=== PATIENT | female | born 1975 | race Caucasian/White ===

== ENCOUNTER 2020-04-07 16:18 | Emergency (ER) | payer OTHER, SELFPAY ==
--- NOTE | 2020-04-07 16:24 | ED.GENADULT ---
HPI - General Adult General Chief complaint: Urogenital-Female Stated complaint: Kidney/Urogenital-female Time Seen by Provider: 04/07/20 16:24 Source: patient Mode of arrival: ambulatory Limitations: no limitations History of Present Illness HPI narrative: 44-year-old female patient presents to the [facility] with complaints of right flank pain. Patient states that the flank pain started about a week ago. Patient states she thought she might have kidney stones because when she peed this morning she thought she felt a stone when she wiped. Patient denies any pain with urination or any blood to the urine. Patient states that she did fall in the [employer] about 7 months ago and is been having issues with her back. Patient states she is currently on muscle relaxants. Patient states she has been taking ibuprofen recently for the new right-sided flank pain. Patient denies it radiating to the stomach or the abdomen. Related Data Home Medications Medication Instructions Recorded Confirmed cyclobenzaprine See Rx Instructions .ROUTE 04/07/20 04/07/20 .COMPLEX PRN hydrochlorothiazide 12.5 mg PO DAILY 04/07/20 04/07/20 meloxicam 15 mg PO DAILY 04/07/20 04/07/20 exwcrxud-dwl-SF-lycopen-lutein 1 tablet PO DAILY 04/07/20 04/07/20 [Centrum Silver] potassium chloride 10 meq PO DAILY 04/07/20 04/07/20 Allergies Allergy/AdvReac Type Severity Reaction Status Date / Time No Known Allergies Allergy Verified 04/07/20 16:36 Review of Systems Review of Systems: Narrative: CONSTITUTIONAL: Denies fever, chills, or sweats. EYES: Denies visual changes, redness, or discharge. ENT: Denies rhinorrhea, congestion, sore throat, or otalgia. CARDIOVASCULAR: Denies chest pain, palpitations, or edema. RESPIRATORY: Denies cough or dyspnea. GASTROINTESTINAL: Denies abdominal pain, nausea, vomiting, or diarrhea. GENITOURINARY: Denies dysuria or hematuria. Positive right-sided flank pain SKIN: Denies rash or itching. MUSCULOSKELETAL: Denies back pain, joint pain, or myalgia. NEUROLOGIC: Denies headache, numbness, or weakness. PSYCHIATRIC: Denies anxiety or depression. 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 There is no relevant family history pertinent to the presenting complaint. Exam Narrative: Exam Narrative: GENERAL: Well-appearing, well-nourished, and in no acute distress. HEAD: Normocephalic, atraumatic. EYES: PERRLA and EOMI. ENT: Nares clear, no rhinorrhea or epistaxis. Mucous membranes moist. NECK: Supple. No lymphadenopathy CHEST: Clear to auscultation. No respiratory distress. HEART: Regular rate and rhythm. No murmur heard. Normal peripheral pulses. ABDOMEN: Soft, nontender, nondistended, normal active bowel sounds. No CVA tenderness on percussion BACK: Patient is able to ambulated without assistance. Pt is seated on the stretcher in no obvouis distress. No surface trauma noted. muscle tenderness to Palpation of the right lower lumbar with spasm noted. No step-offs or deformity noted to the cervical, thoracic or lumbar spine to firm Palpation at the midline. No CVA tenderness to percussion. No saddle anesthesia. ROM: able to stand erect. Normal flexion, extension, Lateral bending and rotation without limitation or complaint of pain. EXTREMITIES: Normal range of motion. No edema. SKIN: Warm, dry, no rash. NEURO: No focal deficits. A
[2020-04-07 16:41] VITALS: BP 130/70; PULSE 71; RESP 20; TEMP 36.6; O2SAT 97
== END 2020-04-07 17:08 | disposition home or self-care (01) ==
PROVIDERS: Emergency Provider Nurse Practitioner Family; PCP Family Medicine
DX: R10.9 Unspecified abdominal pain (principal); M62.830 Muscle spasm of back; M19.90 Unspecified osteoarthritis, unspecified site; J45.909 Unspecified asthma, uncomplicated; R01.1 Cardiac murmur, unspecified; N80.9 Endometriosis, unspecified
CPT/HCPCS: 81003; 87077; 87086; 87088; 99213; G0463

== ENCOUNTER 2022-02-26 19:09 | Emergency (ER) | payer OTHER, SELFPAY ==
--- NOTE | 2022-02-26 19:10 | ED.ABDPAIN ---
HPI - Abdominal Pain General Chief Complaint: Abdominal Pain Stated Complaint: R SIDE PAIN Time Seen by Provider: 02/26/22 19:10 Source: patient Mode of arrival: ambulatory Limitations: no limitations History of Present Illness HPI narrative: Ms. Lopez is a 46-year-old female patient presenting to the clinic today with complaints of right pain radiating to the right upper and lower abdomen since Thursday. She reports no fever, chills, or urinary symptoms. History of gallbladder removal, hysterectomy, and tubal ligation. She reports that the pain is constant in her back rating it about a 4 out of 10 currently stating the pain is sharp and radiates into the right upper and lower abdomen. She is concerned that she may have pancreatitis. Also reports nausea. Related Data Home Medications Medication Instructions Recorded Confirmed hydrochlorothiazide 12.5 mg capsule 12.5 mg PO DAILY 04/07/20 04/07/20 meloxicam 15 mg tablet 15 mg PO DAILY 04/07/20 04/07/20 cccvwmyq-qlh-pmicg acid 0.4 1 tablet PO DAILY 04/07/20 04/07/20 mg-lycopene 300 mcg-lutein 250 mcg tablet (Centrum Silver) potassium chloride 10 mEq 10 meq PO DAILY 04/07/20 04/07/20 tablet,extended release(part/cryst) gabapentin 02/26/22 oxycodone 02/26/22 Allergies Allergy/AdvReac Type Severity Reaction Status Date / Time No Known Allergies Allergy Verified 04/07/20 16:36 Review of Systems Review of Systems: Pertinent positives per HPI. Patient denies any fever, chills, rash, headache, visual changes, dizziness, cough, runny nose, sore throat, shortness of breath, chest pain, palpitations, nausea, vomiting, diarrhea, constipation, or any urinary issues. 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 There is no relevant family history pertinent to the patient complaint. Exam Narrative: General: Well-developed, morbidly obese, in no apparent distress. Head: Normocephalic, atraumatic. Cardio: Regular rate and rhythm, s1 and s2 normal, no murmur appreciated. Resp: Clear to auscultation bilaterally, no rhonchi, rales, wheezing or rubs. Abdomen: Soft, pliable, bowel sounds present in all quadrants,tender to palpation over the right lower and right upper quadrant, no organomegly, positive right-sided CVAT tenderness. Course Course Emergency Course: Portions of this record may have been created with voice recognition software. Level of Care: Express Care Visit Vital Signs Vital signs: Vital Signs Temperature 37.2 C 02/26/22 19:21 Pulse Rate 86 02/26/22 19:21 Respiratory Rate 16 02/26/22 19:21 Blood Pressure 137/102 H 02/26/22 19:21 Pulse Oximetry 98 02/26/22 19:21 Temperature 37.2 C 02/26/22 19:21 Pulse Rate 86 02/26/22 19:21 Respiratory Rate 16 02/26/22 19:21 Blood Pressure 137/102 H 02/26/22 19:21 Pulse Oximetry 98 02/26/22 19:21 Vital signs reviewed Transfer Transfered to: [facility] Transportation: Other (private car) Transfer rationale: Right flank pain radiating into right upper and lower abdomen. U/A + trace blood and leukocytes Accepting physician: Dr. Olivo Transfer comments: Transfered via private care MDM - Abdominal Pain MDM Narrative Medical decision making narrative: At the time of visit patient appears to be in mild distress. Rates his pain 4 o
[2022-02-26 19:21] VITALS: BP 137/102; PULSE 86; RESP 16; TEMP 37.2; O2SAT 98
== END 2022-02-26 19:41 | disposition short-term general hospital (02) ==
PROVIDERS: Emergency Provider Nurse Practitioner Family; PCP Family Medicine
DX: R10.11 Right upper quadrant pain (principal); R10.31 Right lower quadrant pain; J45.909 Unspecified asthma, uncomplicated; N80.9 Endometriosis, unspecified; R01.1 Cardiac murmur, unspecified; M19.90 Unspecified osteoarthritis, unspecified site
CPT/HCPCS: 81003; 99213; G0463

== ENCOUNTER 2022-02-26 20:01 | Emergency (ER) | payer OTHER, SELFPAY ==
--- NOTE | ~2022-02-26 | CT_ITS ---
EXAMINATION: CT abdomen pelvis w con DATE: 02/26/2022 21:00 INDICATION: RUQ pain, R flank pain, nausea TECHNIQUE: Computed tomography (CT) of the abdomen and pelvis was performed with 100 mL Omnipaque-300 intravenous contrast. Automated exposure control and iterative reconstruction technique were employe d. The dose-length product was 1570.05 mGy-cm. COMPARISON: None. FINDINGS: Lower thorax: Unremarkable Liver: Enlarged. Biliary/Gallbladder: Gallbladder is absent. No bile duct dilation. Pancreas: No mass or duct dilation. Spleen: Normal. Adrenals:No mass. Kidneys: No mass, stone, or hydronephrosis. GI tract: No small or large bowel dilation. Normal appendix. Mesentery/Peritoneum: No ascites, mass, or free air. Retroperitoneum: No mass. Pelvis: Partial hysterectomy. 2.2 cm simple appearing cyst. Soft Tissues: Soft tissues and body wall unremarkable. Bones: No acute osseous finding. IMPRESSION: No acute abdominopelvic process detected. Reviewed, dictated and finalized at location K.
[2022-02-26 20:03] VITALS: BP 162/88; PULSE 84; RESP 18; TEMP 36.6; O2SAT 98
[2022-02-26 20:12] VITALS: BP 156/111; PULSE 75; RESP 18; O2SAT 98
[2022-02-26 20:22] LABS: Basophils Percent Auto 0.2 % (0.2-1.2); Eosinophils Absolute Auto 0.3 K/mm3 (0-0.3); Eosinophils Percent Auto 2.4 % (0-4.4); Hematocrit 39.7 % (37.0-47.0); Hemoglobin 12.9 g/dL (12.0-15.0); Immature Granulocyte Absolute 0.02 K/mm3 (0.00-0.031); Immature Granulocyte Percent A 0.2 % (0-0.5); Lymphocytes Absolute Auto 3.87 K/mm3 (0.9-3.2); Lymphocytes Percent Auto 37.8 % (18.3-44.2); Mean Corpuscular HGB Conc 32.5 g/dl (32-36); Mean Corpuscular Hemoglobin 29.1 pg (26-34); Mean Corpuscular Volume 89.6 fl (80-100); Mean Platelet Volume 9.9 fl (7.4-10.4); Monocytes Absolute Auto 0.6 K/mm3 (0.1-0.6); Neutrophils Absolute Auto 5.5 K/mm3 (1.3-6.7); Neutrophils Percent Auto 53.4 % (45.5-73.1); Platelet Count Result 287 k/mm3 (150-375); Red Blood Count 4.43 M/mm3 (4.2-5.4); Red Cell Distribution Width 12.4 % (11.5-14.5); White Blood Count 10.3 K/mm3 (4.5-10.0)
--- NOTE | 2022-02-26 20:32 | ED.ABDPAIN ---
HPI - Abdominal Pain General Chief Complaint: Abdominal Pain Stated Complaint: RLQ pain. reports sent from urgent care Time Seen by Provider: 02/26/22 20:06 History of Present Illness HPI narrative: Patient is a 46-year-old female with a history of cholecystitis status postcholecystectomy, pancretic duct obstruction s/p stents, endometriosis s/p hysterectomy here for evaluation of right upper abdominal pain for past 4 days. Patient states that the pain is intermittent in nature, sharp and stabbing, and is severe. She also notes that she has chronic nausea and vomiting slightly more than usual, last vomited this morning. Also notes diarrhea for the past 3 days, no blood in her stools. No fevers, chills. She was sent from an urgent care facility she was found to have trace blood and leuks in her urine. Has hx of GBS UTI but is not having any urinary urgency, frequency or burning. Related Data Home Medications Medication Instructions Recorded Confirmed hydrochlorothiazide 12.5 mg capsule 12.5 mg PO DAILY 04/07/20 04/07/20 meloxicam 15 mg tablet 15 mg PO DAILY 04/07/20 04/07/20 kkajnebb-wxe-dflef acid 0.4 1 tablet PO DAILY 04/07/20 04/07/20 mg-lycopene 300 mcg-lutein 250 mcg tablet (Centrum Silver) potassium chloride 10 mEq 10 meq PO DAILY 04/07/20 04/07/20 tablet,extended release(part/cryst) gabapentin 02/26/22 oxycodone 02/26/22 Allergies Allergy/AdvReac Type Severity Reaction Status Date / Time No Known Allergies Allergy Verified 04/07/20 16:36 Review of Systems Review of Systems: Gen: Denies fevers or chills Eyes: Denies eye pain or visual change ENT: Denies congestion Respiratory: Denies shortness of breath or cough CV: Denies chest pain or palpitations GI: Reports abdominal pain, nausea, vomiting, diarrhea : denies burning, urgency, frequency or hematuria Musculoskeletal: Reports right flank pain. 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 EYES: PERRLA/EOMI, conjunctivae clear NOSE: No nasal drainage EARS: External ear normal in appearance THROAT: Oropharynx is clear. Mucous membranes are moist. NECK: Supple. No adenopathy, no masses. RESPIRATORY: Airway patent, respirations nonlabored. Clear to auscultation bilaterally, no rales, rhonchi, wheezing. CARDIOVASCULAR: Regular rate and rhythm without murmurs, rubs, or gallops. ABDOMINAL: No CVA tenderness. Tender in right upper quadrant. normoactive bowel sounds. Soft, nondistended. No rebound tenderness or guarding. MUSCULOSKELETAL: Extremities are warm and well-perfused. Moves all extremities well. No edema. NEURO: Normal speech. No focal neurologic deficits. SKIN: Skin is warm and dry. No rashes. PSYCHIATRIC: Normal affect/mood. Course Vital Signs Vital signs: Vital Signs Temperature 97.9 F 02/26/22 20:03 Pulse Rate 84 02/26/22 20:03 Respiratory Rate 18 02/26/22 20:03 Blood Pressure 162/88 H 02/26/22 20:03 Pulse Oximetry 98 02/26/22 20:03 Oxygen Delivery Room Air 02/26/22 20:03 Temperature 97.9 F 02/26/22 20:03 Pulse Rate 79 02/26/22 22:29 Respiratory Rate 20 02/26/22 22:29 Blood Pressure 117/80 02/26/22 22:29 Pulse Oximetry 98 02/26/22 22:29 Oxygen Delivery R
[2022-02-26 20:34] LABS: Alanine Aminotransferase 22 U/L (6-35); Albumin Level 4.2 g/dL (3.5-5.1); Alkaline Phosphatase 86 U/L (38-126); Anion Gap 7 mmol/L (8-16); Aspartate Amino Transferase 25 U/L (14-36); Bilirubin,Total 0.3 mg/dL (0.2-1.3); Blood Urea Nitrogen 14 mg/dL (7-17); Calcium 9.3 mg/dL (8.4-10.2); Carbon Dioxide 27 mmol/L (22-30); Chloride 102 mmol/L (98-107); Estimated CRCL calculation 116 ml/min; Estimated Glomerular Filt Rate > 60; Glucose 101 mg/dL (65-110); Lipase 36 U/L (23-300); Potassium 3.8 mmol/L (3.4-5.0); Sodium 136 mmol/L (137-145)
[2022-02-26] MEDS: MORPHINE SULFATE (*CRX) 4 MG/ML INJ IV PUSH (21:22)
[2022-02-26] MEDS: ONDANSETRON INJ 4 MG/2 ML VIAL IV PUSH (21:23)
[2022-02-26 22:29] VITALS: BP 117/80; PULSE 79; RESP 20; O2SAT 98
== END 2022-02-26 22:30 | disposition home or self-care (01) ==
PROVIDERS: Physician Assistant; Emergency Provider Emergency Medicine; PCP Family Medicine
DX: R10.9 Unspecified abdominal pain (principal); M19.90 Unspecified osteoarthritis, unspecified site; J45.909 Unspecified asthma, uncomplicated
CPT/HCPCS: 36415; 74177; 80053; 83690; 85025; 96374; 96375; 99284; J2270; J2405; Q9967

== ENCOUNTER 2024-08-04 10:12 | Outpatient (CLI) | payer OTHER, SELFPAY ==
--- NOTE | ~2024-08-04 | XR_ITS ---
XR knee LT 3V Ordering provider: Calin Aguilar, PA History: . pain in lt knee . Comparison: None. FINDINGS: BONES: No acute fracture or dislocation. JOINT SPACES: Normal. Early marginal osteophytes in the knee and patella. SOFT TISSUES: Normal. IMPRESSION: No acute osseous abnormality left knee. Reviewed, dictated and finalized at location A. H TENDER
== END 2024-08-04 10:13 | disposition home or self-care (01) ==
PROVIDERS: PCP Physician Assistant; Visit Provider Physician Assistant
DX: M25.562 Pain in left knee (principal)
CPT/HCPCS: 73562